=== PATIENT | female | born 1955 | race Caucasian/White ===

== ENCOUNTER 2020-11-11 07:43 | Day surgery (SDC) | payer OTHER, SELFPAY ==
[~2020-11-11] VITALS: Ht 157.5 cm; Wt 75.3 kg
[~2020-11-11 07:43] MED LIST: CEFAZOLIN SOD 1 GM in D5W 50 ML IV ONE
[2020-11-11] MEDS ORDERED: MIDAZOLAM HCL 5 MG/5 ML VIAL IVP ONE (11:02)
[2020-11-11] MEDS ORDERED: METHYLENE BLUE 1 ML AMPUL INJ ONE (11:02)
[2020-11-11] MEDS ORDERED: LR 1,000 ML IV.SOLN IV ONE (11:02)
[2020-11-11] MEDS ORDERED: PROPOFOL 200MG/ 20ML VIAL (DIPRIVAN) IV ONE (11:02)
[2020-11-11] MEDS ORDERED: ONDANSETRON HCL 4 MG/2 ML VIAL IVP ONE (11:02)
[2020-11-11] MEDS ORDERED: DEXAMETHASONE SOD PHOSPHATE 4 MG/ML VIAL IVP ONE (11:02)
[2020-11-11] MEDS ORDERED: fentaNYL CITRATE 250 MCG/5 ML AMP IV ONE (11:02)
[2020-11-11] MEDS ORDERED: BUPIVACAINE /PF 0.25% 30 ML VIAL INJ ONE (11:02)
[2020-11-11] MEDS ORDERED: SEVOFLURANE 15 MIN GAS INH ONE (11:02)
[2020-11-11] MEDS ORDERED: NS IRRIG SOLN 1000 ML IR ONE (11:02)
[2020-11-11] MEDS ORDERED: ePHEDrine sulfate 50 MG/ML VIAL IVP ONE (11:02)
[2020-11-11] MEDS ORDERED: MEPERIDINE HCL/PF 25 MG/ML DISP.SYRIN IVP PRN (11:45)
[2020-11-11] MEDS ORDERED: METOCLOPRAMIDE HCL 10 MG/2 ML VIAL IVP PRN (11:45)
[2020-11-11] MEDS ORDERED: hydrALAZINE HCL 20 MG/ML VIAL IVP PRN (11:45)
[2020-11-11] MEDS ORDERED: LR 1,000 ML IV SCH (11:45)
[2020-11-11] MEDS ORDERED: MIDAZOLAM HCL 2 MG/2 ML VIAL (VERSED) IVP PRN (11:45)
[2020-11-11] MEDS ORDERED: ONDANSETRON HCL 4 MG/2 ML VIAL IVP PRN (11:45)
[2020-11-11] MEDS ORDERED: HYDROmorphone 1 INJ. 1 MG/ML CARTRIDGE IVP PRN ×2 (11:45)
[2020-11-11] MEDS ORDERED: LABETALOL 100 MG/ 20ML VIAL IVP PRN (11:45)
[2020-11-11] MEDS ORDERED: D5/0.45 NS 1,000 ML IV SCH (12:45)
[2020-11-11] MEDS ORDERED: HYDROcodone/ACETAMIN 5-325 MG TAB (NORCO/ VICODIN) PO PRN ×2 (12:45)
[2020-11-11 14:15] VITALS: BP_SYST 116
== END 2020-11-11 14:15 | disposition home or self-care (01) ==
LOC: SDS 07:43 → SMU 07:46 → EDSTATUS 10:20 → SDS 14:15
PROVIDERS: ATTEND Colon & Rectal Surgery
DX: C50.912 Malignant neoplasm of unspecified site of left female breast (principal); F41.9 Anxiety disorder, unspecified; F32.9 Major depressive disorder, single episode, unspecified; Z20.822 Contact with and (suspected) exposure to COVID-19; Z79.899 Other long term (current) drug therapy
CPT/HCPCS: 19301; 38525; 78195; 88305; 88307; 88333; 88334; 88342; A9541; J0690; J1100; J2250; J2405; J2704; J3010; J3490; J7060; J7120; Q9968; U0003